=== PATIENT | male | born 1990 | race Caucasian/White ===

== ENCOUNTER 2017-03-12 12:10 | Emergency (ER) | payer MEDICAID, OTHER ==
[~2017-03-12] VITALS: Wt 112.5 kg
--- NOTE | 2017-03-12 13:29 | ERD ---
ER Documentation Chief Complaint Date/Time DATE: 03/12/17 TIME: 13:26 Chief Complaint BACK PAIN X2WEEK NO INJURY HPI 26-year-old male history of obesity comes emergency department with low back pain x 2-3 weeks. Mother states that he stays in his room all day, usually playing video games and sitting position. He complains of low back pain, it is achy, nonradiating. He denies any Paresthesias, weakness. Denies saddle anesthesia loss of bowel bladder function ROS All systems reviewed and are negative except as per history of present illness. Medications Home Meds Active Scripts Ibuprofen* (Motrin*) 600 Mg Tab, 600 MG PO Q6, #30 TAB Prov:KHOA QUIROGA PA-C 03/12/17 Allergies Allergies: Coded Allergies: No Known Allergy (Unverified , 11/02/12) PMhx/Soc Medical and Surgical Hx: pt denies Medical Hx, pt denies Surgical Hx History of Surgery: No Anesthesia Reaction: No Hx Neurological Disorder: No Hx Respiratory Disorders: Yes (asthma) Hx Cardiac Disorders: No Hx Psychiatric Problems: No Hx Miscellaneous Medical Probl: Yes (autistic) Hx Alcohol Use: No Hx Substance Use: No Hx Tobacco Use: No Physical Exam Vitals Vital Signs Date Time Temp Pulse Resp B/P Pulse Ox O2 Delivery O2 Flow Rate FiO2 03/12/17 12:18 98.8 90 18 148/88 97 Physical Exam General: Well-developed, well-nourished. The patient appears in no acute distress. HEENT: Head is normocephalic, atraumatic. No scleral icterus. Neck: Supple. Nontender. Lungs: Clear to auscultation. Normal air movement. Heart: Regular rate and rhythm. S1 and S2 are normal. No murmurs, gallops, or rubs. Abdomen: Soft, nontender, nondistended. Bowel sounds are normoactive. Back: no midline tenderness, paraspinal tenderness in right lumbar region Extremities: No clubbing or cyanosis. Normal pulses. Moving extremities x 4. No weakness. Neurologic: Alert and oriented 3. No focal deficits. Skin: Normal turgor. No rash or lesions. Results 24 hrs DIAGNOSTIC IMAGING REPORT Patient: ELIZABETH MORALES : 1990 Age: 26 Sex: M MR #: [id number] DOS: 03/12/17 1324 Ordering MD: KHOA QUIROGA PA-C Location: [facility] Room/Bed: PROCEDURE: Lumbar spine series CLINICAL INDICATION: Back pain TECHNIQUE: 2 views of the lumbar spine are available for review COMPARISON: None available FINDINGS: There is mild nonspecific straightening of the normal lumbar lordosis. Alignment is otherwise intact. No acute fracture or dislocation is seen. Vertebral body heights are well maintained. Intervertebral disk heights are well maintained. Paraspinous soft tissues are grossly unremarkable. IMPRESSION: 1. Mild nonspecific straightening of the normal lumbar lordosis. 2. Otherwise unremarkable lumbar spine series. RPTAT: KK .Eldon Cerrato MD, Date Time Electronically viewed and signed by .Eldon Cerrato MD, MD on 2016 14:14 .B/ CC: KHOA QUIROGA PA-C Procedures/MDM 26-year-old male comes in with lower back pain for the past 2-3 days, patient's x-rays are unremarkable at this time. Patient's mother was concerned because his room, watching TV or playing video games and is usually not active. I suspect his back pain is due to immobility, x-rays at this time were done at patient's mother's request. I am not concerned for any acute injury, neurologic condition, cauda equina. I recommend exercise, take ibuprofen as needed for pain Departure Diagnosis: Primary Impression: Back pain Condition: Good KHOA QUIROGA PA-C March 12, 2017 13:29
--- NOTE | 2017-03-12 14:14 | RADRPT ---
PROCEDURE: Lumbar spine series CLINICAL INDICATION: Back pain TECHNIQUE: 2 views of the lumbar spine are available for review COMPARISON: None available FINDINGS: There is mild nonspecific straightening of the normal lumbar lordosis. Alignment is otherwise intac t. No acute fracture or dislocation is seen. Vertebral body heights are well maintained. Interverte bral disk heights are well maintained. Paraspinous soft tissues are grossly unremarkable. IMPRESSION: 1. Mild nonspecific straightening of the normal lumbar lordosis. 2. Otherwise unremarkable lumbar spine series. RPTAT: KK .Eldon Cerrato MD, Date Time Electronically viewed and signed by .Eldon Cerrato MD, on 03/12/2017 14:14 .B/
[2017-03-12] MEDS ORDERED: IBUP-1542 PO (14:28)
== END 2017-03-12 14:39 | disposition home or self-care (01) ==
LOC: FTE 12:10
DX: M54.5 Low back pain (principal); F84.0 Autistic disorder; J45.909 Unspecified asthma, uncomplicated
CPT/HCPCS: 72100; Z7502

== ENCOUNTER 2017-04-10 12:57 | Emergency (ER) | payer OTHER ==
[~2017-04-10] VITALS: Ht 180.3 cm; Wt 109.0 kg
[~2017-04-10 12:57] MED LIST: IBUP-1542 PO
[2017-04-10 13:07] VITALS: Ht 180.3 cm; Wt 109.0 kg
[2017-04-10] MEDS ORDERED: KETOROLAC 30 MG INJ IM STA (13:22)
--- NOTE | 2017-04-10 13:31 | ERD ---
ER Documentation Chief Complaint Date/Time DATE: 04/10/17 TIME: 13:29 Chief Complaint low back pain, no trauma, x 4 weeks; HPI Patient is a 26-year-old male here with mother who presents to the ED with ongoing low back pain. States that he was here about a month ago for similar complaints. Denies trauma states that he just developed pain one day. Patient states that he sits at home a lot and plays video games and is on the computer. He denies any new onset trauma since last time he was here in the ED. Patient has been taking Naprosyn which is helped minimally with his symptoms. Patient did go to his primary care who stated to continue taking the medicines to start exercises. Denies urinary symptoms. Denies fever or chills. Denies chest pain or cough or shortness of breath. Denies abdominal pain, nausea, vomiting or diarrhea. ROS All systems reviewed and are negative except as per history of present illness. Medications Home Meds Active Scripts Naproxen* (Naprosyn*) 500 Mg Tablet, 500 MG PO BID Y for PAIN AND/OR INFLAMMATION, #30 TAB Prov:EDILSON LIMA PA-C 04/10/17 Ibuprofen* (Motrin*) 600 Mg Tab, 600 MG PO Q6, #30 TAB Prov:KHOA QUIROGA PA-C 03/12/17 Allergies Allergies: Coded Allergies: No Known Allergy (Unverified , 11/02/12) PMhx/Soc History of Surgery: No Anesthesia Reaction: No Hx Neurological Disorder: No Hx Respiratory Disorders: Yes (asthma) Hx Cardiac Disorders: No Hx Psychiatric Problems: No Hx Miscellaneous Medical Probl: Yes (autistic) Hx Alcohol Use: No Hx Substance Use: No Hx Tobacco Use: No FmHx Family History: No coronary disease, No diabetes, No other Physical Exam Vitals Vital Signs Date Time Temp Pulse Resp B/P Pulse Ox O2 Delivery O2 Flow Rate FiO2 04/10/17 13:07 98.2 97 18 136/79 97 Physical Exam GENERAL: Well-developed, well-nourished obese male. Appears in no acute distress. HEAD: Normocephalic, atraumatic. EYES: Pupils are equally reactive bilaterally. EOMs grossly intact. No conjunctival erythema. ENT: Moist mucous membranes. No uvula deviation. No kissing tonsils. No exudates. NECK: Supple. No lymphadenopathy or thyromegaly. No meningismus. negative kernig. negative brudinski. LUNG: Clear to auscultation bilaterally. No rhonchi, wheezing, rales or coarse breath sounds. HEART: Regular rate and rhythm. No murmurs, rubs or gallops. BACK: No midline tenderness. No spinal or paraspinal tenderness. No step-offs or deformities. No open wounds or lacerations. Extremities: Equal pulses bilaterally. No peripheral clubbing, cyanosis or edema. No unilateral leg swelling. NEUROLOGIC: Alert and oriented. Moving all four extremities. 5/5 strength in all extremities. Normal speech. Steady gait. SKIN: Normal color. Warm and dry. No rashes or lesions. Capillary refill < 2 seconds Results 24 hrs Laboratory Tests Test 04/10/17 14:02 Bedside Urine pH (LAB) 5.5 Bedside Urine Protein (LAB) Negative Bedside Urine Glucose (UA) Negative Bedside Urine Ketones (LAB) Negative Bedside Urine Blood Trace-lysed Bedside Urine Nitrite (LAB) Negative Bedside Urine Leukocyte Esterase (L Negative Current Medications Medications (Trade) Dose Ordered Sig/Matteo Route PRN Reason Start Time Stop Time Status Last Admin Dose Admin Ketorolac Tromethamine (Toradol) 30 mg ONCE STAT IM 04/10/17 13:22 04/10/17 13:23 DC 04/10/17 14:00 Procedures/MDM ER COURSE: I kept the patient and/or family informed of laboratory and diagnostic imaging results throughout the emergency room course. MEDICATIONS Patient was given Toradol 30 mg IM. Tolerated well with no adverse reaction LABORATORY STUDIES Urine dip was negative for nitrites or hematuria or leukocytes MEDICAL DECISION MAKING: This is a 26 year old male who presents with low back pain 1 month. Vital signs were reviewed. Patient is afebrile. Patient is not hypoxic. She is not toxic or ill-appearing. Patient has chronic low back pain. Patient has prolonged sitting which is likely related to back pain. Patient likely has muscle strain and muscle spasm. I did not think a repeat x-ray was necessary at this time as patient did not have any new onset trauma and did not have any spinal or paraspinal tenderness. I have low suspicion for pyelonephritis or nephrolithiasis, septic stone or obstructive stone. Patient does not have back pain does not have urinary symptoms and is afebrile. Low suspicion for cauda equine syndrome, spinal epidural hematoma, spinal epidural abscess, osteomyelitis, fracture, aortic dissection, AAA, pyelonephritis, nephrolithiasis , septic stone, obstructed stone. DISCHARGE: At this time, patient is stable for discharge and outpatient management with no new complaints during the ER course. Patient was sent home with Machelle and to follow-up with primary care provider for further evaluation. Advised patient that he should not have prolonged sitting and to exercise and take breaks from sitting down.. Patient will be discharged home with instructions to recheck for new or worsening symptoms such as fever, nausea, weakness, LOC and to follow up with primary care in the next 1-2 days. Patient was advised to return to the ER for any new or worsening symptoms. Plan was discussed and patient and/or family understands and agrees. Home instructions were given. Departure Diagnosis: Primary Impression: Back pain Back pain location: low back pain Chronicity: chronic Back pain laterality : unspecified Sciatica presence: unspecified whether sciatica present Qualified Code: M54.5 - Chronic low back pain, unspecified back pain laterality , with sciatica presence unspecified Condition: Stable EDILSON LIMA PA-C Apr 10, 2017 13:31
[2017-04-10 13:58] LABS: URINE BLOOD (Dip) POC Trace-lysed (NEGATIVE)
[2017-04-10] MEDS ORDERED: NAPR-260 PO (14:29)
[2017-04-10 14:39] VITALS: BP 119/58; PULSE 80; RESP 20
== END 2017-04-10 14:40 | disposition home or self-care (01) ==
LOC: FTE 12:57
DX: M54.5 Low back pain (principal); J45.909 Unspecified asthma, uncomplicated; F84.0 Autistic disorder
CPT/HCPCS: 81003; J1885; 96372